=== PATIENT | male | born 1950 | race Caucasian/White ===

== ENCOUNTER 2017-04-02 21:42 | Inpatient (IN) ==
[2017-04-02 22:22] LABS: Basophils # 0.1 10*3/uL (0.0-0.2); Basophils % 0.6 % (0.0-0.8); Eosinophils # 0.3 10*3/uL (0.0-0.87); Eosinophils % 2.8 % (0.00-10.9); Hematocrit 35.6 VOL% (42.0-52.0); Hemoglobin 11.9 GM/DL (14.0-18.0); Immature Granulocytes % 0.4 %; Immature Granulocytes Absolute 0.04 #; Lymphocytes # 4.4 10*3/uL (1.4-4.0); Lymphocytes % 49.3 % (21.2-54.2); Mean Corpuscular HGB Conc 33.4 GM/DL (32-36); Mean Corpuscular Hemoglobin 29 PG (27-34); Mean Corpuscular Volume 87.3 FL (87-102); Mean Platelet Volume 11.1 FL (9.6-12.0); Monocytes # 0.7 10*3/uL (0.11-0.8); Monocytes % 8.3 % (1.7-12.7); Neutrophils # 3.4 10*3/uL (1.4-7.4); Neutrophils % 38.6 % (38.7-73.9); Platelet Count 196 T/CUMM (130-400); Red Blood Count 4.08 MC/CUMM (3.8-5.5); Red Cell Distribution Width 14.1 % (9.3-17.3); White Blood Count 8.9 T/CUMM (4-12)
[2017-04-02 22:37] LABS: Alanine Aminotransferase 131 U/L (16-61); Albumin 3.4 G/DL (3.4-5.0); Alkaline Phosphatase 85 U/L (45-117); Aspartate Amino Transferase 118 U/L (0-37); Bilirubin,Total < 0.39 MG/DL (0.2-1.0); Blood Urea Nitrogen 17 MG/DL (7-18); Calcium 8.4 MG/DL (8.5-10.1); Glucose 121 MG/DL (74-106); Osmolality,Calculated 277.7 MOS/KG (273-304); Potassium 3.9 MMOL/L (3.5-5.1); Sodium 138 MMOL/L (136-145); Total Protein 7.1 G/DL (6.4-8.3)
[2017-04-02 22:55] LABS: Band Neutrophils 1 % (0-10); Eosinophils 3 % (0-10); Lymphocytes 47 % (20-55); Segmented Neutrophils 46 % (50-85); Total Cells Counted 100
[2017-04-02 22:56] LABS: Hypochromasia Slight; Ovalocytes Slight; Platelet Estimate Adequate; Polychromasia Slight
[2017-04-02] MEDS ORDERED: LIDOCAINE 1%/EPI INJ 20 ML VIAL ONE (23:20)
[2017-04-03 00:02] LABS: Barbiturates Screen,Urine Negative (Negative); Benzodiazepines Screen,Urine Positive (Negative); Cannabinoid Screen,Urine Negative (Negative); Opiate Screen,Urine Negative (Negative); Phencyclidine Screen,Urine Negative (Negative)
[2017-04-03] MEDS ORDERED: ceFAZolin 2,000 MG in SODIUM CHLORIDE 0.9% 100 ML IV STA (00:36)
[2017-04-03] MEDS ORDERED: DIPH/TET/ACEL PERT BOOSTER VACCINE 0.5 ML VIAL IM ONE ×2 (00:36→00:47)
[2017-04-03] MEDS ORDERED: ceFAZolin 1,000 MG VIAL ONE (00:47)
[2017-04-03 00:52] LABS: Basophils # 0.1 10*3/uL (0.0-0.2); Basophils % 0.5 % (0.0-0.8); Eosinophils # 0.1 10*3/uL (0.0-0.87); Eosinophils % 1.3 % (0.00-10.9); Hemoglobin 11.1 GM/DL (14.0-18.0); Immature Granulocytes % 0.9 %; Immature Granulocytes Absolute 0.08 #; Lymphocytes # 2.8 10*3/uL (1.4-4.0); Lymphocytes % 30.7 % (21.2-54.2); Mean Corpuscular HGB Conc 33.6 GM/DL (32-36); Mean Corpuscular Hemoglobin 30 PG (27-34); Mean Corpuscular Volume 87.8 FL (87-102); Mean Platelet Volume 11.3 FL (9.6-12.0); Monocytes # 0.7 10*3/uL (0.11-0.8); Neutrophils # 5.3 10*3/uL (1.4-7.4); Neutrophils % 58.6 % (38.7-73.9); Platelet Count 183 T/CUMM (130-400); Red Blood Count 3.76 MC/CUMM (3.8-5.5); Red Cell Distribution Width 14.2 % (9.3-17.3); White Blood Count 9.1 T/CUMM (4-12)
--- NOTE | 2017-04-03 02:00 | Emergency Department Note ---
Arrival - Arrival Chief Complaint: Wound/Laceration Stated Complaint: laceration ED Nursing Triage Note: pt [facility] with a laceration to his left wrist. report received from [facility] indicates pt fell on yonny glass. pt's mental status is altered, unable to answer questions appropriately. Cat Tourniquet on upper left arm per [facility]. [facility] estimates pt lost between 2-3 liters of blood. pt is covered head to toe in blood from keeping wrist elevated. Mode of Arrival: Stretcher Time Seen by Provider: 04/02/17 22:05 - History of Present Illness HPI Narrative: This is a 66-year-old white male with a history of bipolar disorder, hypertension who took a none known amount of Xanax as he was having difficulty sleeping and was holding a yonny jar when he tripped and fell down the stairs hitting his head and lacerating his left hand. His friend called an ambulance because he was bleeding profusely from a vein on the dorsal aspect of his left wrist. He presented with a tourniquet over his left arm. Patient denies suicidal ideation. In the emergency department 3 sutures were placed in the 8 the 2 cm laceration of the left dorsal wrist which stopped his bleeding. Additional lacerations of the left hand were sutured. Patient's hemoglobin and hematocrit remained stable over the 3 hour period of observation the emergency department. The case was discussed with the general surgeon who was comfortable taking care of what vascular problems the patient may have related to his left arm. The case was discussed with the hospitalist who agreed to admit the patient for presumed Xanax overdose without suicidal ideations. Allergies/Adverse Reactions: Allergies Allergy/AdvReac Type Severity Reaction Status Date / Time No Known Allergies Allergy Unverified 09/25/14 22:03 Home Medications: Home Medications Medication Instructions Recorded Confirmed Type No Known Home Medications [No 09/25/14 09/25/14 History Known Home Medications] Review of System - Review of System Constitutional: Absent: fever, night sweats Eyes: Absent: redness, vision change Head/Ears/Nose/Throat: Absent: epistaxis, nasal drainage Respiratory: Absent: respiratory distress, wheezing Cardiovascular: Absent: dyspnea on exertion, edema Gastrointestinal: Absent: diarrhea, constipation, hematemesis Genitourinary male: Absent: dysuria, discharge Musculoskeletal: Absent: joint swelling, lower back pain, neck pain Skin: Absent: change in color, change in hair/nails Neurological: Absent: headache, numbness, confusion Psychiatric: Absent: depression, suicidal thoughts, homicidal thoughts Endocrine: Absent: heat intolerance, polydipsia, polyuria Hematological/Lymphatic: Absent: easy bruising, lymphadenopathy Allergic/Immunologic: Absent: urticaria, itchy eyes Medical,Surgical,& Family Hx - Medical History Cardio: History of: Hypertension Psychological: History of: Bipolar Disorder - Social History Smoking Status: Unknown if ever smoked Frequency of Alcohol Use: Unknown Type of Drug Use: Unknown Exam Vital Signs: Vital Signs Temperature 97.6 F 04/02/17 22:30 Pulse Rate 109 H 04/02/17 22:30 Respiratory Rate 19 04/02/17 22:30 Blood Pressure 130/74 04/02/17 22:30 O2 Sat by Pulse Oximetry 91 L 04/02/17 21:42 - Head Head exam: Present: atraumatic - Eye Eye exam: Present: PERRL, EOMI - ENT ENT exam: Present: normal exam, normal oropharynx - Neck Neck exam: Present: normal inspection, full ROM - Chest Chest inspection: Present: normal inspection, symmetric chest wall rise - Respiratory Respiratory exam: Present: normal lung sounds bilaterally - Cardiovascular Cardiovascular exam: Present: regular rate, normal rhythm - Abdominal Exam Abdominal exam: Present: soft, normal bowel sounds - Extremities Exam Extremities exam: Present: other (Multiple lacerations of the left hand and left wrist are noted.) - Back Exam Back exam: Present: normal inspection, full ROM - Neurological Exam Neurological exam: Present: other (The patient is oriented to time place and person however he is sleepy and easily falls back to sleep after being questioned.) - Psychiatric Psychiatric exam: Present: normal affect, normal mood - Skin Skin exam: Present: warm, dry Course Course Narrative: Procedure note: Using 1% lidocaine with epinephrine a stellate 2 cm laceration of the dorsal aspect of the left wrist over the ulnar styloid was sutured with 2-0 nylon 3 controlling the active bleeding. A 3 cm laceration of the left hyperthenar eminence was sutured with 3-0 nylon 4 after Betadine scrub and saline irrigation and using 1% lidocaine with epinephrine. A 2 cm laceration of the left hand was sutured under 1% lidocaine with epinephrine after Betadine scrub and copious saline irrigation with 3-0 nylon 3 The case was discussed with Dr. Staley agreed to be a organizational research consultant on the case concerning possible vascular injuries of the left arm. The case was discussed with the hospitalist service who agreed to admit the patient for possible benzodiazepine overdose. The patient's hemoglobin and hematocrit remained stable during the 3 hour observation. In the emergency department. The patient has repeatedly denied having suicidal ideations. Results - Labs CBC & BMP: 04/03/17 00:00 04/02/17 21:49 Disposition Clinical Impression: Drug overdose, Laceration of left hand Disposition: Still a Patient Additional Instructions: Case was discussed with the general surgeon Dr. Staley who agreed to be a organizational research consultant on the case regarding possible vascular injuries of the left arm. Case was discussed with the hospitalist service who agreed to admit the patient for possible benzodiazepine overdose. The patient repeatedly denied having suicidal ideations.
[2017-04-03] MEDS ORDERED: SODIUM CHLORIDE 0.9% 1,000 ML IV STA (02:33)
--- NOTE | 2017-04-03 03:20 | Hospitalist History & Physical ---
Assessment and Plan (1) Drug overdose Status: Acute Assessment and plan: Positive for benzos No ETOH Systolic BP 70 Will give 1L NS and continue at 125mL/hr Hypotension likely due from ingestion of Xanax bars Admit to ICU for closer monitoring Current Visit: Yes (2) Laceration of left hand Status: Acute Assessment and plan: Stable H/H Will redraw in AM CTA left forearm and left hand Surgical consultation Current Visit: Yes History of Present Illness Chief complaint: overdose; hand laceration History of present illness: Called to the ER for Mr. Beasley who is a 66 year old male that presents to the ED tonight with active hemorrhaging of left wrist after falling on yonny jars and cutting wrists. Patient says he fell and hit the floor with his head and hit his wrist on the yonny jars. He denied LOC and stated he remembered seeing a lot of blood and calling for his brother to come help him. Patient admits to eating several Xanax bars tonight to "get high." Patient states he only does this approximately every 2 months and states he felt more stressed out today than normal. He admits to the occasional use of cannabis but can't remember the last time he smoked any. He denies any alcohol or other drug abuse. Patient states he gets the bars from friends and these are not his prescriptions. Upon EMS arrival, patient had lost approximately 2-3 liters of blood and a tourniquet and pressure dressing was placed over wound. He was hypotensive with SBP 90-100mmHg. His left medial wrist was closed with sutures that stopped the bleeding and several lacerations in the palm of his hand was sutured as well. A CT head was performed and was negative. H/H's were drawn and they remain stable currently. Patient denies suicidal ideations, homicidal ideations, suicide attempts, or suicide plans. The chart stated he had a bi-polar history but he denies stating "that was from my drug use." Additional history includes Hep C, HTN, cholecystectomy, left wrist surgery, and right hand surgery. Patient will be admitted in the ICU for closer monitoring, IVF resuscitation, CTA of left forearm, and surgical consultation. Home medications will be reconciled once confirmed. Patient is a full code. Home Medications Medication Instructions Recorded Confirmed Type No Known Home Medications [No 09/25/14 09/25/14 History Known Home Medications] Allergies Allergy/AdvReac Type Severity Reaction Status Date / Time No Known Allergies Allergy Unverified 09/25/14 22:03 Medical,Surgical,& Family Hx - Medical History Cardio: History of: Hypertension No history of: CHF, [place] Psychological: History of: Depression (substance abuse) No history of: Previous Suicide Attempt, Schizophrenia, Violent Behavior Neurology: No history of: Neurological Problems HEENT: No history of: HEENT Problems Endocrine: No history of: Endocrine Problems Respiratory: No history of: Respiratory Problems Renal: No history of: Renal Problems Genitourinary: No history of: Problems Gastrointestinal: No history of: GI Problems Musculoskeletal: No history of: Musculoskeletal Problems Hematology: History of: Blood Disorders (Hepatitis C) - Surgical History Abdominal Surgeries: Surgical HX of: Cholecystectomy Orthopedic Surgeries: Surgical HX of;: Orthopedic Surgery (left wrist surgery and right hand surgery) - Family History Additional Family History: Patient does not know family history. - Social History Smoking Status: Former smoker Have you smoked in the last 12 months: No Frequency of Alcohol Use: Unknown Type of Drug Use: Marijuana, Prescription Drug Abuse Marital Status: Single Lives With:: Sibling Functional capacity: independent ambulation ROS unobtainable: due to mental status Review of systems: Patient is not able to answer questions due to sleepiness. Exam - Constitutional Vitals: Period Temp Pulse Resp BP Sys/Willingham Pulse Ox Last 24 Hr 97.6 F 109-109 18-19 130-130/74-74 91 General appearance: normal weight, no acute distress - Head Head exam: Present: hematoma (to forehead) - Eye Eye exam: Present: EOMI Pupils: Present: BERHANE - ENT ENT exam: Present: normal exam - Neck Neck exam: Present: normal inspection - Respiratory Respiratory exam: Present: clear to auscultation bilaterally (Respirations even and non-labored with symmetrical rise and fall of chest notd. ). Absent: accessory muscle use - Cardiovascular Cardiovascular exam: Present: regular rate and rhythm. Absent: diastolic murmur , systolic murmur - GI/Abdominal GI/Abdominal exam: Present: soft. Absent: firm, tenderness - Extremities Exam Extremities exam: Present: normal capillary refill, full ROM, other (laceration to left wrist, and 2 lacs to left hand with intact suture line. No redness, swelling, drainage, or hematoma @ site.) - Neurological Exam Neurological exam: Present: other (Somnolent. Awakens to speech. Will answer some questions appropriately. Slurred speech. ) - Psychiatric Psychiatric exam: Present: flat affect. Absent: suicidal ideation - Skin Skin exam: Present: normal color, warm, dry, intact Results - Labs CBC & BMP: 04/03/17 00:00 04/02/17 21:49 Lab Results: I have reviewed the past 24 hour labs
[2017-04-03] MEDS ORDERED: ONDANSETRON 4 MG/2 ML VIAL IV PRN (03:34)
[2017-04-03] MEDS ORDERED: SODIUM CHLORIDE 0.9% 1,000 ML IV SCH (03:34)
[2017-04-03] MEDS ORDERED: PANTOPRAZOLE 40 MG VIAL IV SCH (04:00)
[2017-04-03 07:41] LABS: Hemoglobin 9.3 GM/DL (14.0-18.0)
--- NOTE | 2017-04-03 08:55 | XRay Report ---
Exam: XR wrist 2V RT Indication: Possible foreign body Pain, Comparison: No relevant comparisons Findings: Remote healed fracture deformity of the distal radius and ulna with prior fixation with single cortical screw within the volar aspect of the radial metaphysis. Osteoarthritic changes across the radiocarpal joint with slight widening of the scapholunate distance.. No joint effusion. No radiographic soft tissue abnormalities. No radiopaque foreign bodies. Impression: No radiopaque foreign bodies PROCEDURE INTERPRETED AT [facility] DEPARTMENT OF RADIOLOGY Final Report Signed by: Chase Gallardo MD
[2017-04-03] MEDS ORDERED: ENOXAPARIN 40 MG/0.4 ML SYRINGE SUBCUT SCH (09:00)
[2017-04-03] MEDS ORDERED: DOCUSATE SODIUM 100 MG CAPSULE PO SCH (09:00)
--- NOTE | 2017-04-03 09:04 | CT Report ---
Exam: CT head without intravenous contrast Clinical History: 66 years Male fall, blunt trauma laceration Technique: Axial computed tomography images of the head/brain without intravenous contrast. The CT exam was performed using one or more of the following dose reduction techniques: Automated exposure control, adjustment of the mA and/or kV according to patient size, or use of iterative reconstruction technique. Comparison: September 25, 2014 Findings: Brain: Mild atrophy and microangiopathic small vessel ischemic changes. Gallardo-white matter distinction maintained. No mass effect. No intra or extra-axial hemorrhage. Ventricles: Unremarkable. No ventriculomegaly. Bones/joints: Calvarium is intact Soft tissues: Small right frontal scalp hematoma. Sinuses: No active paranasal sinus process Mastoid air cells: Unremarkable as visualized. Impression: 1. No acute intracranial abnormality 2. Small right frontal scalp hematoma PROCEDURE INTERPRETED AT [facility] DEPARTMENT OF RADIOLOGY Final Report Signed by: Chase Gallardo MD
[2017-04-03 10:16] VITALS: BP 102/90
--- NOTE | 2017-04-03 10:23 | Discharge Summary ---
Hospital Course - Hospital Course Hospital Course: This is a 66-year-old male that presented to the ED at [facility] on the night of April 02, 2017 for the evaluation of drug overdose and hand laceration. Patient has a medical history significant for hepatitis C, hypertension, polysubstance abuse, cannabis abuse, and bipolar disease. The patient has a surgical history significant for cholecystectomy, left wrist surgery, and right hand surgery. Apparently, the patient was brought in by EMS after being summons by the patient's family members. The patient reported that he had taken multiple Xanax tablets on the night of presentation to "get high". He reported multiple episodes of this type of behavior in recent months and attributed them to stress. After consuming multiple Xanax tablets, the patient sustained a fall striking his head and wrist on multiple glass containers. The patient denied loss of consciousness however reported that he "saw a lot of blood" coming from his wrist after he struck the glass containers. His family became alarmed and called for EMS. The patient was subsequently transported to [facility] for further evaluation. The patient was assessed at the time of ED presentation. A tourniquet had been placed on the patient's left wrist by EMS during transport. EMS reported that the patient lost an estimated "2-3 liters of blood". The patient was noted to be hypotensive at the time of ED presentation with a blood pressure recorded 88/ 40. Aggressive rehydration was ordered and sutures were placed to the patient' s left wrist. Left wrist was negative for the presence of any radiopaque foreign bodies. CT was significant for small right frontal scalp hematoma however, no acute intracranial abnormalities were noted. The patient was subsequently admitted to the hospitalist service for continuation of care. Aggressive fluid rehydration, empiric antibiotic coverage, deep vein thrombosis prophylactics, antiemetics, pain management, and protein pump inhibitors were initiated The patient's condition has improved. The patient has requested discharge due to his inability to obtain benzodiazepines. The patient states "if you I will will not give me Xanax then I can just go home and take them myself". The patient is stable and appropriate for discharge. - Time spent with patient Time with patient DS: Less than 30 minutes Diagnosis - Discharge Diagnosis (1) Drug overdose Status: Acute (2) Laceration of left hand Status: Acute Specialty Discharge - Follow Up or Referrals - Speciality Discharge Instructions Hospitalist Instructions: Follow-up with primary care physician in 3-5 days as directed. Please refrain from the use of benzodiazepine and participation in reckless behavior. Discharge Plan - Discharge Data Disposition: Disch To Home/Self Care Condition at Discharge: Stable Discharge Diet: advance to your usual diet Activity: resume usual activities as tolerated Hygiene: no restrictions Weight Bearing at Discharge: full weight bearing Driving: no restrictions Contact your physician if you experience:: fever over 101, Difficulty voiding, Redness or swelling, Nausea/Vomiting, Shortness of breath, Bleeding Wound / Dressing Care Instructions: Clean with soap and water and cover with dry dressing each day and as needed. - Discharge Medications New Ibuprofen Tab [Motrin Tab] 600 mg PO Q6H PRN #21 tablet PRN Reason: Pain No Action No Known Home Medications [No Known Home Medications] - Follow Up or Referral - Forms/Instructions Exam - Constitutional Vitals: Period Temp Pulse Resp BP Sys/Willingham Pulse Ox Last 24 Hr 97.3 F-98.9 F 52-109 15-20 85-130/46-75 91-100 General appearance: normal weight, no acute distress - Head Head exam: Present: normal inspection, normocephalic, hematoma (Right scalp hematoma noted) - Eye Eye exam: Present: EOMI, conjunctival injection Pupils: Present: BERHAEN, normal accommodation - ENT ENT exam: Present: normal exam, normal external ear exam, normal oropharynx - Neck Neck exam: Present: normal inspection. Absent: lymphadenopathy, meningismus, tenderness, thyromegaly - Respiratory Respiratory exam: Present: clear to auscultation bilaterally. Absent: rales, rhonchi, stridor, wheezes - Cardiovascular Cardiovascular exam: Present: regular rate and rhythm. Absent: carotid bruit, diastolic murmur, gallop, JVD, rubs, systolic murmur - GI/Abdominal GI/Abdominal exam: Present: normal bowel sounds. Absent: soft - Extremities Exam Extremities exam: Present: normal inspection, normal capillary refill, full ROM. Absent: edema - Back Exam Back exam: Present: normal inspection - Neurological Exam Neurological exam: Present: alert, oriented X3, CN II-XII intact - Psychiatric Psychiatric exam: Present: agitated, anxious - Skin Skin exam: Present: normal color, warm, dry Discharge Results Procedures and tests throughout hospitalization: Pending Orders 04/03/17 03:19 CT angio forearm LT Routine 04/03/17 03:32 CT angio hand LT Routine Labs on day of discharge: Labs from last 24 hours 04/03/17 04/03/17 04/02/17 07:24 00:00 23:27 WBC 9.1 RBC 3.76 L Hgb 9.3 L 11.1 L Hct 28.0 L 33.0 L MCV 87.8 MCH 30 MCHC 33.6 RDW 14.2 Plt Count 183 MPV 11.3 Neut % (Auto) 58.6 Lymph % (Auto) 30.7 [place] % (Auto) 8.0 Eos % (Auto) 1.3 Baso % (Auto) 0.5 Neut # (Auto) 5.3 Lymph # (Auto) 2.8 [place] # (Auto) 0.7 Eos # (Auto) 0.1 Baso # (Auto) 0.1 Total Counted Immature Gran % 0.9 Nucleated RBC % 0.0 Immature Gran # 0.08 Segmented Neutrophils Band Neutrophils Lymphocytes Monocytes Eosinophils Basophils Nucleated RBCs # 0.00 Platelet Estimate Immature Plt Fraction 0.0 Polychromasia Hypochromasia Ovalocytes Sodium Potassium Chloride Carbon Dioxide Anion Gap BUN Creatinine GFR Calculation BUN/Creatinine Ratio Glucose Calculated Osmolality Calcium Total Bilirubin AST ALT Alkaline Phosphatase Total Protein Albumin Globulin Albumin/Globulin Ratio Urine Opiates Screen Negative Ur Barbiturates Screen Negative Ur Phencyclidine Scrn Negative U Amphetamine/Methamph Negative U Benzodiazepines Scrn Positive H U Cocaine Metab Screen Negative U Cannabinoids Screen Negative Serum Alcohol Blood Type Antibody Screen 04/02/17 04/02/17 04/02/17 21:49 21:49 21:49 WBC 8.9 RBC 4.08 Hgb 11.9 L Hct 35.6 L MCV 87.3 MCH 29 MCHC 33.4 RDW 14.1 Plt Count 196 MPV 11.1 Neut % (Auto) 38.6 L Lymph % (Auto) 49.3 [place] % (Auto) 8.3 Eos % (Auto) 2.8 Baso % (Auto) 0.6 Neut # (Auto) 3.4 Lymph # (Auto) 4.4 H [place] # (Auto) 0.7 Eos # (Auto) 0.3 Baso # (Auto) 0.1 Total Counted 100 Immature Gran % 0.4 Nucleated RBC % 0.0 Immature Gran # 0.04 Segmented Neutrophils 46 L Band Neutrophils 1 Lymphocytes 47 Monocytes 2 Eosinophils 3 Basophils 1.0 H Nucleated RBCs # 0.00 Platelet Estimate Adequate Immature Plt Fraction 0.0 Polychromasia Slight Hypochromasia Slight Ovalocytes Slight Sodium 138 Potassium 3.9 Chloride 106 Carbon Dioxide 25 Anion Gap 10.9 BUN 17 Creatinine 0.80 GFR Calculation 20 BUN/Creatinine Ratio 21.00 H Glucose 121 H Calculated Osmolality 277.7 Calcium 8.4 L Total Bilirubin < 0.39 AST 118 H ALT 131 H Alkaline Phosphatase 85 Total Protein 7.1 Albumin 3.4 Globulin 3.7 H Albumin/Globulin Ratio 0.9 L Urine Opiates Screen Ur Barbiturates Screen Ur Phencyclidine Scrn U Amphetamine/Methamph U Benzodiazepines Scrn U Cocaine Metab Screen U Cannabinoids Screen Serum Alcohol < 15 L Blood Type O POSITIVE Antibody Screen Negative DS: Provider Date of admission: 04/03/17 02:21 Primary care physician: . No PCP Attending physician on admission: Julia Adamson MD Consults: 04/03/17 03:19 Consult to Physician [CONS] Routine Comment: left wrist laceration Consulting Provider: Valerio Staley Discharging clinician: Kandi Armendariz CNP
--- NOTE | 2017-04-03 12:50 | Event Note ---
I was consulted to see this patient after he had some lacerations on his left hand repaired in the ER last night. The patient on exam today had no neurologic or vascular deficits. There is good capillary refill. The suture lines were clean with no evidence of infection. There was a laceration on the dorsal aspect of his left wrist and also several on the palmar aspect near the palm of his fifth metacarpal. The patient had complete extensor function of his tendons with no deficits. His neurologic exam was normal. He had good capillary refill. I recommend no further intervention. The patient can follow- up in the ER to have the sutures removed as per the ER team.
== END 2017-04-03 10:50 | disposition home or self-care (01) | DRG 918 ==
LOC: EDUNIT# → N.ED 21:42 → N.ICU 04-03 02:21
PROVIDERS: ADMIT Internal Medicine; ATTEND Internal Medicine